=== PATIENT | female | born 1960 | race Caucasian/White ===

== ENCOUNTER 2022-04-25 14:54 | Inpatient (IN) | payer BC, OTHER ==
[2022-04-25] MEDS ORDERED: DEXAMETHASONE SOD PHOSPHATE 10 MG/1 ML VIAL ONE (15:13)
[2022-04-25] MEDS ORDERED: DEXAMETHASONE SOD PHOSPHATE 10 MG/1 ML VIAL IVPUSH ONE (15:23)
[2022-04-25] MEDS ORDERED: MIDAZOLAM HCL 2 MG/2 ML SINGLE DOSE VIAL IVPUSH ONE (15:39)
[2022-04-25 15:40] LABS: HEMATOCRIT 33.1 % (32.4-45.2); HEMOGLOBIN 10.5 GM/dL (10.7-15.3); MCH 28.5 pg (25.7-33.7); MCHC 31.6 g/dl (32.0-36.0); MEAN CELL VOLUME 90.1 fl (80-96); MEAN PLT VOLUME 8.1 fl (7.5-11.1); PLATELET COUNT 535 10^3/uL (134-434); RBC 3.68 M/mm3 (3.60-5.2); RDW 17.6 % (11.6-15.6); WHITE BLOOD COUNT 24.2 K/mm3 (4.0-10.0)
[2022-04-25 15:48] LABS: INR 1.11 (0.83-1.09); PROTHROMBIN TIME (PATIENT) 12.9 SEC (9.7-13.0)
[2022-04-25 15:50] LABS: ACTIVATED PTT 42.2 SECONDS (25.2-36.5)
[2022-04-25] MEDS ORDERED: MIDAZOLAM HCL 2 MG/2 ML SINGLE DOSE VIAL ONE (15:50)
[2022-04-25 16:00] LABS: CALCIUM 9.8 mg/dL (8.5-10.1)
[2022-04-25 16:01] LABS: ALBUMIN 3.4 g/dl (3.4-5.0); BLOOD UREA NITROGEN 22.9 mg/dL (7-18)
[2022-04-25 16:04] LABS: CREATININE 0.3 mg/dL (0.55-1.3)
[2022-04-25 16:05] LABS: BILIRUBIN,TOTAL 0.4 mg/dL (0.2-1); TOT PROT 8.1 g/dl (6.4-8.2)
[2022-04-25] MEDS ORDERED: VANCOMYCIN 1 GM in D5W (PRE-DOCKED) 1,000 MG/250 ML IVPB ONE (16:05)
[2022-04-25] MEDS ORDERED: PIPERACILLIN/TAZOB 4.5 GM 4.5 GM in DEXTROSE 5%-WATER 100 ML IVPB ONE (16:05)
[2022-04-25] MEDS ORDERED: PIPERACILLIN/TAZOB 4.5 GM 4.5 GM/100 ML BAG IVPB ONE (16:12)
[2022-04-25 16:17] LABS: ANISOCYTOSIS 2+; MACROCYTOSIS 1+
[2022-04-25 16:45] LABS: ARTERIAL BLOOD GAS BASE EXCESS -1.5 mmol/L (-2-2); ARTERIAL BLOOD GAS PO2 90.5 mmHg (80-100)
[2022-04-25] MEDS ORDERED: SODIUM CHLORIDE 1,000 ML IV SCH (16:45)
[2022-04-25 16:48] LABS: ARTERIAL BLOOD GAS pH 7.107 (7.350-7.450)
[2022-04-25 16:49] LABS: ALLENS TEST POSITIVE
[2022-04-25 16:50] LABS: VENT MODE A/C; VENT RATE 12
[2022-04-25 17:36] LABS: EPI CELLS 4 /uL (0-25.1); HYALINE CASTS 2 /uL (0-3.1); URINE APPEARANCE CLEAR; URINE BACTERIA 2 /uL (0-1359); URINE BILIRUBIN NEGATIVE (NEGATIVE); URINE COLOR YELLOW; URINE GLUCOSE (UA) NEGATIVE (NEGATIVE); URINE KETONE NEGATIVE (NEGATIVE); URINE LEUK ESTERASE NEGATIVE (NEGATIVE); URINE NITRITE NEGATIVE (NEGATIVE); URINE PROTEIN 1+ (NEGATIVE); URINE RBC 6 /uL (0-23.9); URINE UROBILINOGEN 0.2 mg/dL (0.2-1.0); URINE WBC 5 /uL (0-25.8)
[2022-04-25] MEDS ORDERED: oxyCODONE HCL 5 MG TABLET GT PRN (18:25)
[2022-04-25] MEDS ORDERED: ALBUTEROL SO4 0.083% IH SOL 2.5 MG/3 ML VIAL.NEB. NEB PRN (18:25)
[2022-04-25] MEDS: VANCOMYCIN 1 GM/200 ML PREMIX BAG (RESTRICTED TO ID ONLY) IVPB ONE ×2 (19:39→20:08)
[2022-04-25] MEDS ORDERED: ONDANSETRON 4 MG/2 ML VIAL ONE (19:46)
[2022-04-25] MEDS ORDERED: methylPREDNISolone NA SUCC 125 MG/2 ML VIAL ONE (19:59)
[2022-04-25] MEDS ORDERED: methylPREDNISolone NA SUCC 125 MG/2 ML VIAL IM ONE (20:05)
[2022-04-25] MEDS ORDERED: ONDANSETRON 4 MG/2 ML VIAL IVPUSH ONE (20:06)
[2022-04-25] MEDS: CHLORHEXIDINE GLUCONATE 4% CLEANSER FOR DECOLONIZATION TP SCH (21:23)
[2022-04-25] MEDS: GABAPENTIN 300 MG CAPSULE GT SCH (21:23)
[2022-04-25] MEDS: ALPRAZolam 1 MG TABLET GT SCH (21:23)
[2022-04-25] MEDS: MELATONIN 5 MG TABLETS NR SCH (21:23)
[2022-04-25] MEDS: MUPIROCIN 2% TOPICAL OINTMENT FOR DECOLONIZATION NS SCH (21:23)
[2022-04-25 21:49] LABS: ARTERIAL BLD GAS O2 SATURATION 98.9 % (95-98); ARTERIAL BLOOD GAS BASE EXCESS 3.1 mmol/L (-2-2); ARTERIAL BLOOD GAS PO2 155.8 mmHg (80-100); ARTERIAL BLOOD GAS pH 7.361 (7.350-7.450)
[2022-04-25 21:52] LABS: ALLENS TEST POSITIVE
[2022-04-25 21:53] LABS: VENT MODE A/C; VENT RATE 16
[2022-04-25] MEDS ORDERED: MELATONIN GT SCH (22:00)
[2022-04-26] MEDS ORDERED: ACETAMINOPHEN INJECTION 100 ML IVPB ONE (04:19)
[2022-04-26] MEDS ORDERED: ACETAMINOPHEN 325 MG TABLET (FP) PO ONE (04:26)
[2022-04-26] MEDS ORDERED: ACETAMINOPHEN 1000 MG/100 ML BAG IVPB ONE (04:33)
[2022-04-26] MEDS: ONDANSETRON 4 MG/2 ML VIAL IVPUSH PRN (04:37)
[2022-04-26] MEDS ORDERED: ONDANSETRON HCL 4 MG/5 ML BULK BOTTLE GT PRN (07:37)
[2022-04-26 08:04] LABS: HEMATOCRIT 33.3 % (32.4-45.2); MCH 29.3 pg (25.7-33.7); MCHC 33.2 g/dl (32.0-36.0); MEAN CELL VOLUME 88.2 fl (80-96); MEAN PLT VOLUME 8.1 fl (7.5-11.1); PLATELET COUNT 338 10^3/uL (134-434); RBC 3.77 M/mm3 (3.60-5.2); RDW 17.1 % (11.6-15.6); WHITE BLOOD COUNT 9.1 K/mm3 (4.0-10.0)
[2022-04-26 08:23] LABS: ALBUMIN 3.2 g/dl (3.4-5.0); BLOOD UREA NITROGEN 28.3 mg/dL (7-18); CALCIUM 9.3 mg/dL (8.5-10.1)
[2022-04-26 08:27] LABS: BILIRUBIN,TOTAL 0.4 mg/dL (0.2-1); CREATININE 0.2 mg/dL (0.55-1.3); TOT PROT 7.3 g/dl (6.4-8.2)
[2022-04-26] MEDS: CHOLECALCIFEROL (VIT D SOLUTION) 400 UNIT/1 ML DROPS GT SCH (09:55)
[2022-04-26] MEDS: POLYETHYLENE GLYCOL (HEALTHYLAX) 3350 17 GM PACKET GT SCH (09:55)
[2022-04-26] MEDS: MUPIROCIN 2% TOPICAL OINTMENT FOR DECOLONIZATION NS SCH ×2 (09:56→21:18)
[2022-04-26] MEDS: SCOPOLAMINE HYDROBROMIDE 1 PATCH PATCH.TD72 TD SCH (09:56)
[2022-04-26] MEDS: GLYCOPYRROLATE 1 MG TABLET GT SCH ×2 (09:57→21:17)
[2022-04-26] MEDS: ZINC SULFATE 220 MG CAPSULE (FP) GT SCH (09:57)
[2022-04-26] MEDS: FUROSEMIDE 40 MG/5 ML UNIT-DOSE CUP GT SCH (09:57)
[2022-04-26] MEDS: GABAPENTIN 300 MG CAPSULE GT SCH ×2 (09:57→21:17)
[2022-04-26] MEDS: SERTRALINE HCL 50 MG TABLET (FP) GT SCH (09:59)
[2022-04-26] MEDS: ALPRAZolam 1 MG TABLET GT SCH ×2 (09:59→21:21)
[2022-04-26] MEDS ORDERED: PATIENT'S OWN MEDICATION (NON-FORMULARY) (Zinc Gluconate [Zinc] 50 MG Tablet) GT SCH (10:00)
[2022-04-26] MEDS ORDERED: ENOXAPARIN NA (PORCINE) 40 MG/0.4 ML DISP.SYRIN SQ SCH (10:00)
[2022-04-26 10:05] LABS: ANISOCYTOSIS 1+; MACROCYTOSIS 0
[2022-04-26] MEDS ORDERED: PATIENT'S OWN MEDICATION (NON-FORMULARY) (Dextroamphetamine/Amphetamine [Adderall 10 Mg Ta GT SCH (10:15)
[2022-04-26] MEDS ORDERED: GLYCOPYRROLATE 0.2 MG/1 ML VIAL IM ONE (10:30)
[2022-04-26] MEDS: AMINO ACIDS/PROTEIN HYDROLYS 30 ML LIQUID.PKT GT SCH ×2 (10:56→17:40)
[2022-04-26] MEDS: ENOXAPARIN NA (PORCINE) 40 MG/0.4 ML DISP.SYRIN SQ SCH (12:01)
[2022-04-26] MEDS: PIPERACILLIN/TAZOB 4.5 GM 4.5 GM in DEXTROSE 5%-WATER 100 ML IVPB SCH (17:41)
[2022-04-26] MEDS: MELATONIN 5 MG TABLETS NR SCH (21:17)
[2022-04-26] MEDS: CHLORHEXIDINE GLUCONATE 4% CLEANSER FOR DECOLONIZATION TP SCH (21:18)
[2022-04-26] MEDS: SENNOSIDES 8.8 MG/5 ML SYRUP GT SCH (21:19)
[2022-04-26] MEDS ORDERED: ALPRAZolam 1 MG TABLET NGT PRN (21:23)
[2022-04-26] MEDS: ALPRAZolam 1 MG TABLET NGT SCH (21:47)
[2022-04-27] MEDS: PIPERACILLIN/TAZOB 4.5 GM 4.5 GM in DEXTROSE 5%-WATER 100 ML IVPB SCH ×3 (02:18→17:03)
[2022-04-27] MEDS: LEVOTHYROXINE NA 50 MCG TABLET (FP) GT SCH (06:05)
[2022-04-27 08:19] LABS: CALCIUM 9.5 mg/dL (8.5-10.1)
[2022-04-27 08:20] LABS: ALBUMIN 3.1 g/dl (3.4-5.0); BLOOD UREA NITROGEN 32.2 mg/dL (7-18)
[2022-04-27 08:24] LABS: BILIRUBIN,TOTAL 0.6 mg/dL (0.2-1); CREATININE 0.2 mg/dL (0.55-1.3); PHOSPHOROUS 3.2 mg/dL (2.5-4.9); TOT PROT 6.8 g/dl (6.4-8.2)
[2022-04-27] MEDS ORDERED: LEVOTHYROXINE NA 50 MCG TABLET (FP) GT SCH (08:30)
[2022-04-27] MEDS: AMINO ACIDS/PROTEIN HYDROLYS 30 ML LIQUID.PKT GT SCH ×2 (09:22→16:55)
[2022-04-27] MEDS: POLYETHYLENE GLYCOL (HEALTHYLAX) 3350 17 GM PACKET GT SCH (09:24)
[2022-04-27] MEDS: ENOXAPARIN NA (PORCINE) 40 MG/0.4 ML DISP.SYRIN SQ SCH (09:24)
[2022-04-27] MEDS: GABAPENTIN 300 MG CAPSULE GT SCH ×2 (09:25→21:34)
[2022-04-27] MEDS: ZINC SULFATE 220 MG CAPSULE (FP) GT SCH (09:25)
[2022-04-27] MEDS: SERTRALINE HCL 50 MG TABLET (FP) GT SCH (09:25)
[2022-04-27] MEDS: FUROSEMIDE 40 MG/5 ML UNIT-DOSE CUP GT SCH (09:26)
[2022-04-27] MEDS: MUPIROCIN 2% TOPICAL OINTMENT FOR DECOLONIZATION NS SCH ×2 (09:26→21:16)
[2022-04-27] MEDS: GLYCOPYRROLATE 1 MG TABLET GT SCH ×2 (09:26→21:39)
[2022-04-27] MEDS: CHOLECALCIFEROL (VIT D SOLUTION) 400 UNIT/1 ML DROPS GT SCH (09:26)
[2022-04-27] MEDS: ALPRAZolam 1 MG TABLET NGT SCH ×2 (09:26→21:34)
[2022-04-27 12:24] LABS: BASO % 0.4 % (0-2.0); EOS % 0.5 % (0-4.5); HEMATOCRIT 25.2 % (32.4-45.2); HEMOGLOBIN 8.6 GM/dL (10.7-15.3); LYMPH % 24.5 % (8-40); MCH 29.6 pg (25.7-33.7); MEAN CELL VOLUME 87.3 fl (80-96); MEAN PLT VOLUME 7.7 fl (7.5-11.1); MONO % 7.7 % (3.8-10.2); NEUT % 66.9 % (42.8-82.8); PLATELET COUNT 318 10^3/uL (134-434); RBC 2.89 M/mm3 (3.60-5.2); RDW 17.3 % (11.6-15.6)
[2022-04-27 15:43] VITALS: BMI 27.4
[2022-04-27] MEDS: ACETAMINOPHEN 650 MG/20.3 ML ORAL SOLUTION (CUPS) GT PRN (18:08)
[2022-04-27] MEDS: CHLORHEXIDINE GLUCONATE 4% CLEANSER FOR DECOLONIZATION TP SCH (21:16)
[2022-04-27] MEDS: MELATONIN 5 MG TABLETS NR SCH (21:34)
[2022-04-27] MEDS: ASCORBIC ACID 250 MG TABLET (FP) PO SCH (21:34)
[2022-04-27] MEDS: SENNOSIDES 8.8 MG/5 ML SYRUP GT SCH (21:39)
[2022-04-28] MEDS: PIPERACILLIN/TAZOB 4.5 GM 4.5 GM in DEXTROSE 5%-WATER 100 ML IVPB SCH ×3 (02:00→17:22)
[2022-04-28] MEDS: LEVOTHYROXINE NA 50 MCG TABLET (FP) GT SCH (06:17)
[2022-04-28] MEDS: POLYETHYLENE GLYCOL (HEALTHYLAX) 3350 17 GM PACKET GT SCH (09:16)
[2022-04-28] MEDS: AMINO ACIDS/PROTEIN HYDROLYS 30 ML LIQUID.PKT GT SCH ×2 (09:16→17:21)
[2022-04-28] MEDS: CHOLECALCIFEROL (VIT D SOLUTION) 400 UNIT/1 ML DROPS GT SCH (09:16)
[2022-04-28] MEDS: GLYCOPYRROLATE 1 MG TABLET GT SCH ×2 (09:16→21:02)
[2022-04-28] MEDS: FUROSEMIDE 40 MG/5 ML UNIT-DOSE CUP GT SCH (09:16)
[2022-04-28] MEDS: ENOXAPARIN NA (PORCINE) 40 MG/0.4 ML DISP.SYRIN SQ SCH (09:16)
[2022-04-28] MEDS: GABAPENTIN 300 MG CAPSULE GT SCH ×2 (09:17→21:01)
[2022-04-28] MEDS: ALPRAZolam 1 MG TABLET NGT SCH ×2 (09:17→21:01)
[2022-04-28] MEDS: ASCORBIC ACID 250 MG TABLET (FP) PO SCH ×2 (09:17→21:01)
[2022-04-28] MEDS: ZINC SULFATE 220 MG CAPSULE (FP) GT SCH (09:17)
[2022-04-28] MEDS: SERTRALINE HCL 50 MG TABLET (FP) GT SCH (09:17)
[2022-04-28] MEDS: MUPIROCIN 2% TOPICAL OINTMENT FOR DECOLONIZATION NS SCH ×2 (09:18→21:00)
[2022-04-28] MEDS: ACETAMINOPHEN 650 MG/20.3 ML ORAL SOLUTION (CUPS) GT PRN ×2 (15:42→21:01)
[2022-04-28] MEDS: CHLORHEXIDINE GLUCONATE 4% CLEANSER FOR DECOLONIZATION TP SCH (21:00)
[2022-04-28] MEDS: MELATONIN 5 MG TABLETS NR SCH (21:01)
[2022-04-28] MEDS: SENNOSIDES 8.8 MG/5 ML SYRUP GT SCH (21:03)
[2022-04-29] MEDS: PIPERACILLIN/TAZOB 4.5 GM 4.5 GM in DEXTROSE 5%-WATER 100 ML IVPB SCH ×3 (01:02→17:34)
[2022-04-29] MEDS: ACETAMINOPHEN 650 MG/20.3 ML ORAL SOLUTION (CUPS) GT PRN ×3 (06:48→21:21)
[2022-04-29] MEDS: LEVOTHYROXINE NA 50 MCG TABLET (FP) GT SCH (06:48)
[2022-04-29] MEDS: AMINO ACIDS/PROTEIN HYDROLYS 30 ML LIQUID.PKT GT SCH ×2 (09:09→17:35)
[2022-04-29] MEDS: ENOXAPARIN NA (PORCINE) 40 MG/0.4 ML DISP.SYRIN SQ SCH (09:09)
[2022-04-29] MEDS: ZINC SULFATE 220 MG CAPSULE (FP) GT SCH (09:11)
[2022-04-29] MEDS: POLYETHYLENE GLYCOL (HEALTHYLAX) 3350 17 GM PACKET GT SCH (09:11)
[2022-04-29] MEDS: SERTRALINE HCL 50 MG TABLET (FP) GT SCH (09:11)
[2022-04-29] MEDS: SCOPOLAMINE HYDROBROMIDE 1 PATCH PATCH.TD72 TD SCH (09:11)
[2022-04-29] MEDS: GLYCOPYRROLATE 1 MG TABLET GT SCH ×2 (09:12→21:00)
[2022-04-29] MEDS: ASCORBIC ACID 250 MG TABLET (FP) PO SCH ×2 (09:12→21:00)
[2022-04-29] MEDS: GABAPENTIN 300 MG CAPSULE GT SCH ×2 (09:12→21:00)
[2022-04-29] MEDS: ALPRAZolam 1 MG TABLET NGT SCH ×2 (09:12→21:00)
[2022-04-29] MEDS: MUPIROCIN 2% TOPICAL OINTMENT FOR DECOLONIZATION NS SCH ×2 (09:13→20:59)
[2022-04-29] MEDS: FUROSEMIDE 40 MG/5 ML UNIT-DOSE CUP GT SCH (09:14)
[2022-04-29] MEDS: CHOLECALCIFEROL (VIT D SOLUTION) 400 UNIT/1 ML DROPS GT SCH (09:14)
[2022-04-29] MEDS: CHLORHEXIDINE GLUCONATE 4% CLEANSER FOR DECOLONIZATION TP SCH (20:59)
[2022-04-29] MEDS: MELATONIN 5 MG TABLETS NR SCH (20:59)
[2022-04-29] MEDS: SENNOSIDES 8.8 MG/5 ML SYRUP GT SCH (21:00)
[2022-04-29] MEDS: ONDANSETRON 4 MG/2 ML VIAL IVPUSH PRN (21:01)
[2022-04-30] MEDS: PIPERACILLIN/TAZOB 4.5 GM 4.5 GM in DEXTROSE 5%-WATER 100 ML IVPB SCH ×3 (01:11→18:22)
[2022-04-30] MEDS: LEVOTHYROXINE NA 50 MCG TABLET (FP) GT SCH (07:12)
[2022-04-30] MEDS: ACETAMINOPHEN 650 MG/20.3 ML ORAL SOLUTION (CUPS) GT PRN ×3 (07:12→21:17)
[2022-04-30 07:14] LABS: BASO % 0.2 % (0-2.0); HEMATOCRIT 26.9 % (32.4-45.2); HEMOGLOBIN 9.1 GM/dL (10.7-15.3); LYMPH % 11.9 % (8-40); MCH 29.7 pg (25.7-33.7); MCHC 33.8 g/dl (32.0-36.0); MEAN CELL VOLUME 87.7 fl (80-96); MEAN PLT VOLUME 7.7 fl (7.5-11.1); MONO % 4.9 % (3.8-10.2); PLATELET COUNT 295 10^3/uL (134-434); RBC 3.07 M/mm3 (3.60-5.2); RDW 17.3 % (11.6-15.6); WHITE BLOOD COUNT 9.1 K/mm3 (4.0-10.0)
[2022-04-30 07:29] LABS: CALCIUM 9.3 mg/dL (8.5-10.1)
[2022-04-30 07:30] LABS: ALBUMIN 2.9 g/dl (3.4-5.0); BLOOD UREA NITROGEN 19.4 mg/dL (7-18)
[2022-04-30 07:33] LABS: CREATININE 0.3 mg/dL (0.55-1.3)
[2022-04-30 07:35] LABS: BILIRUBIN,TOTAL 0.6 mg/dL (0.2-1); TOT PROT 6.7 g/dl (6.4-8.2)
[2022-04-30] MEDS: POLYETHYLENE GLYCOL (HEALTHYLAX) 3350 17 GM PACKET GT SCH ×2 (10:18→21:11)
[2022-04-30] MEDS: AMINO ACIDS/PROTEIN HYDROLYS 30 ML LIQUID.PKT GT SCH ×2 (10:18→18:15)
[2022-04-30] MEDS: SERTRALINE HCL 50 MG TABLET (FP) GT SCH (10:19)
[2022-04-30] MEDS: GABAPENTIN 300 MG CAPSULE GT SCH ×2 (10:19→21:12)
[2022-04-30] MEDS: CHOLECALCIFEROL (VIT D SOLUTION) 400 UNIT/1 ML DROPS GT SCH (10:20)
[2022-04-30] MEDS: ALPRAZolam 1 MG TABLET NGT SCH ×2 (10:21→21:13)
[2022-04-30] MEDS: ZINC SULFATE 220 MG CAPSULE (FP) GT SCH (10:21)
[2022-04-30] MEDS: ASCORBIC ACID 250 MG TABLET (FP) PO SCH ×2 (10:21→21:12)
[2022-04-30] MEDS: FUROSEMIDE 40 MG/5 ML UNIT-DOSE CUP GT SCH (10:21)
[2022-04-30] MEDS: MUPIROCIN 2% TOPICAL OINTMENT FOR DECOLONIZATION NS SCH (10:22)
[2022-04-30] MEDS: ENOXAPARIN NA (PORCINE) 40 MG/0.4 ML DISP.SYRIN SQ SCH (11:17)
[2022-04-30] MEDS: GLYCOPYRROLATE 1 MG TABLET GT SCH ×2 (11:20→21:17)
[2022-04-30 14:28] LABS: EPI CELLS 13 /uL (0-25.1); HYALINE CASTS 0 /uL (0-3.1); PH,URINE 5.5 (5.0-8.0); URINE APPEARANCE CLEAR; URINE BACTERIA 1 /uL (0-1359); URINE BILIRUBIN NEGATIVE (NEGATIVE); URINE COLOR YELLOW; URINE GLUCOSE (UA) NEGATIVE (NEGATIVE); URINE KETONE NEGATIVE (NEGATIVE); URINE LEUK ESTERASE TRACE (NEGATIVE); URINE NITRITE NEGATIVE (NEGATIVE); URINE PROTEIN NEGATIVE (NEGATIVE); URINE RBC 17 /uL (0-23.9); URINE UROBILINOGEN 0.2 mg/dL (0.2-1.0); URINE WBC 13 /uL (0-25.8)
[2022-04-30 14:55] LABS: URINE CRYSTALS FEW CALCIUM OXALATE /hpf
[2022-04-30] MEDS: MELATONIN 5 MG TABLETS NR SCH (21:11)
[2022-04-30] MEDS: CHLORHEXIDINE GLUCONATE 4% CLEANSER FOR DECOLONIZATION TP SCH (21:11)
[2022-04-30] MEDS: SENNOSIDES 8.8 MG/5 ML SYRUP GT SCH (21:13)
[2022-04-30] MEDS: ONDANSETRON 4 MG/2 ML VIAL IVPUSH PRN (22:20)
[2022-05-01] MEDS: PIPERACILLIN/TAZOB 4.5 GM 4.5 GM in DEXTROSE 5%-WATER 100 ML IVPB SCH ×3 (02:24→17:43)
[2022-05-01] MEDS: ACETAMINOPHEN 650 MG/20.3 ML ORAL SOLUTION (CUPS) GT PRN ×3 (05:48→17:56)
[2022-05-01] MEDS: LEVOTHYROXINE NA 50 MCG TABLET (FP) GT SCH (06:21)
[2022-05-01] MEDS: AMINO ACIDS/PROTEIN HYDROLYS 30 ML LIQUID.PKT GT SCH ×2 (07:42→17:44)
[2022-05-01 07:51] LABS: HEMATOCRIT 26.3 % (32.4-45.2); HEMOGLOBIN 8.7 GM/dL (10.7-15.3); MCH 29.1 pg (25.7-33.7); MEAN CELL VOLUME 88.2 fl (80-96); PLATELET COUNT 320 10^3/uL (134-434); RBC 2.98 M/mm3 (3.60-5.2); RDW 17.4 % (11.6-15.6); WHITE BLOOD COUNT 8.2 K/mm3 (4.0-10.0)
[2022-05-01 08:20] LABS: CALCIUM 9.1 mg/dL (8.5-10.1)
[2022-05-01 08:24] LABS: CREATININE 0.3 mg/dL (0.55-1.3)
[2022-05-01 08:27] LABS: BLOOD UREA NITROGEN 21.2 mg/dL (7-18)
[2022-05-01] MEDS: POLYETHYLENE GLYCOL (HEALTHYLAX) 3350 17 GM PACKET GT SCH ×2 (11:26→21:29)
[2022-05-01] MEDS: GABAPENTIN 300 MG CAPSULE GT SCH ×2 (11:26→21:29)
[2022-05-01] MEDS: ZINC SULFATE 220 MG CAPSULE (FP) GT SCH (11:26)
[2022-05-01] MEDS: SERTRALINE HCL 50 MG TABLET (FP) GT SCH (11:26)
[2022-05-01] MEDS: ASCORBIC ACID 250 MG TABLET (FP) PO SCH ×2 (11:26→21:29)
[2022-05-01] MEDS: ENOXAPARIN NA (PORCINE) 40 MG/0.4 ML DISP.SYRIN SQ SCH (11:27)
[2022-05-01] MEDS: ALPRAZolam 1 MG TABLET NGT SCH ×2 (11:27→21:29)
[2022-05-01] MEDS: CHOLECALCIFEROL (VIT D SOLUTION) 400 UNIT/1 ML DROPS GT SCH (14:57)
[2022-05-01] MEDS: FUROSEMIDE 40 MG/5 ML UNIT-DOSE CUP GT SCH (14:58)
[2022-05-01] MEDS: GLYCOPYRROLATE 1 MG TABLET GT SCH ×2 (14:59→22:06)
[2022-05-01] MEDS: POTASSIUM CHLORIDE ORAL LIQUID 20 MEQ/15 ML PO SCH ×2 (17:43→21:28)
[2022-05-01] MEDS ORDERED: FAMOTIDINE 40 MG/5 ML ORAL SUSPENSION GT ONE (20:45)
[2022-05-01] MEDS: ONDANSETRON 4 MG/2 ML VIAL IVPUSH PRN (21:17)
[2022-05-01] MEDS: MELATONIN 5 MG TABLETS NR SCH (21:29)
[2022-05-01] MEDS: SENNOSIDES 8.8 MG/5 ML SYRUP GT SCH (22:06)
[2022-05-02] MEDS: PIPERACILLIN/TAZOB 4.5 GM 4.5 GM in DEXTROSE 5%-WATER 100 ML IVPB SCH ×3 (01:24→17:22)
[2022-05-02] MEDS: LEVOTHYROXINE NA 50 MCG TABLET (FP) GT SCH (06:05)
[2022-05-02] MEDS: ACETAMINOPHEN 650 MG/20.3 ML ORAL SOLUTION (CUPS) GT PRN ×2 (06:53→18:00)
[2022-05-02] MEDS: AMINO ACIDS/PROTEIN HYDROLYS 30 ML LIQUID.PKT GT SCH ×2 (10:00→17:43)
[2022-05-02] MEDS: SERTRALINE HCL 50 MG TABLET (FP) GT SCH (10:04)
[2022-05-02] MEDS: ZINC SULFATE 220 MG CAPSULE (FP) GT SCH (10:04)
[2022-05-02] MEDS: CHOLECALCIFEROL (VIT D SOLUTION) 400 UNIT/1 ML DROPS GT SCH (10:05)
[2022-05-02] MEDS: FUROSEMIDE 40 MG/5 ML UNIT-DOSE CUP GT SCH (10:05)
[2022-05-02] MEDS: ENOXAPARIN NA (PORCINE) 40 MG/0.4 ML DISP.SYRIN SQ SCH (10:05)
[2022-05-02] MEDS: ASCORBIC ACID 250 MG TABLET (FP) PO SCH ×2 (10:05→21:15)
[2022-05-02] MEDS: GABAPENTIN 300 MG CAPSULE GT SCH ×2 (10:05→21:15)
[2022-05-02] MEDS: SCOPOLAMINE HYDROBROMIDE 1 PATCH PATCH.TD72 TD SCH (10:06)
[2022-05-02] MEDS: ALPRAZolam 1 MG TABLET NGT SCH ×2 (10:06→21:15)
[2022-05-02] MEDS: POLYETHYLENE GLYCOL (HEALTHYLAX) 3350 17 GM PACKET GT SCH ×2 (10:06→21:15)
[2022-05-02] MEDS: GLYCOPYRROLATE 1 MG TABLET GT SCH ×2 (10:07→22:31)
[2022-05-02 10:47] LABS: ALBUMIN 2.7 g/dl (3.4-5.0); BLOOD UREA NITROGEN 20.8 mg/dL (7-18); CALCIUM 8.6 mg/dL (8.5-10.1); MAGNESIUM 2.1 mg/dL (1.8-2.4)
[2022-05-02 10:50] LABS: CREATININE 0.2 mg/dL (0.55-1.3)
[2022-05-02 10:52] LABS: BILIRUBIN,TOTAL 0.3 mg/dL (0.2-1); TOT PROT 6.6 g/dl (6.4-8.2)
[2022-05-02] MEDS ORDERED: FAMOTIDINE 40 MG/5 ML ORAL SUSPENSION PEG ONE (19:53)
[2022-05-02] MEDS: MELATONIN 5 MG TABLETS NR SCH (21:15)
[2022-05-02] MEDS: SENNOSIDES 8.8 MG/5 ML SYRUP GT SCH (22:22)
[2022-05-03] MEDS: PIPERACILLIN/TAZOB 4.5 GM 4.5 GM in DEXTROSE 5%-WATER 100 ML IVPB SCH ×2 (01:39→09:10)
[2022-05-03] MEDS: ACETAMINOPHEN 650 MG/20.3 ML ORAL SOLUTION (CUPS) GT PRN ×3 (02:11→18:41)
[2022-05-03] MEDS: LEVOTHYROXINE NA 50 MCG TABLET (FP) GT SCH (06:01)
[2022-05-03] MEDS: GLYCOPYRROLATE 1 MG TABLET GT SCH ×2 (09:10→21:25)
[2022-05-03] MEDS: ALPRAZolam 1 MG TABLET NGT SCH ×2 (09:10→21:25)
[2022-05-03] MEDS: AMINO ACIDS/PROTEIN HYDROLYS 30 ML LIQUID.PKT GT SCH ×2 (09:10→17:19)
[2022-05-03] MEDS: ZINC SULFATE 220 MG CAPSULE (FP) GT SCH (09:10)
[2022-05-03] MEDS: SERTRALINE HCL 50 MG TABLET (FP) GT SCH (09:10)
[2022-05-03] MEDS: GABAPENTIN 300 MG CAPSULE GT SCH ×2 (09:10→21:25)
[2022-05-03] MEDS: ASCORBIC ACID 250 MG TABLET (FP) PO SCH ×2 (09:10→21:25)
[2022-05-03] MEDS: FUROSEMIDE 40 MG/5 ML UNIT-DOSE CUP GT SCH (09:11)
[2022-05-03] MEDS: ENOXAPARIN NA (PORCINE) 40 MG/0.4 ML DISP.SYRIN SQ SCH (09:11)
[2022-05-03] MEDS: POLYETHYLENE GLYCOL (HEALTHYLAX) 3350 17 GM PACKET GT SCH ×2 (09:12→21:26)
[2022-05-03] MEDS: CHOLECALCIFEROL (VIT D SOLUTION) 400 UNIT/1 ML DROPS GT SCH (09:12)
[2022-05-03] MEDS: ONDANSETRON 4 MG/2 ML VIAL IVPUSH PRN (19:43)
[2022-05-03] MEDS: MELATONIN 5 MG TABLETS NR SCH (21:25)
[2022-05-03] MEDS: SENNOSIDES 8.8 MG/5 ML SYRUP GT SCH (21:26)
[2022-05-03] MEDS: CLOTRIMAZOLE 1% CREAM TP SCH (21:27)
[2022-05-03] MEDS: MINERAL OIL/PET HY-PHL TOPICAL OINTMENT 454 GM JAR TP SCH (21:27)
[2022-05-04] MEDS: LEVOTHYROXINE NA 50 MCG TABLET (FP) GT SCH (06:17)
[2022-05-04] MEDS: POLYETHYLENE GLYCOL (HEALTHYLAX) 3350 17 GM PACKET GT SCH ×2 (11:07→21:06)
[2022-05-04] MEDS: AMINO ACIDS/PROTEIN HYDROLYS 30 ML LIQUID.PKT GT SCH ×2 (11:07→17:43)
[2022-05-04] MEDS: GABAPENTIN 300 MG CAPSULE GT SCH ×2 (11:08→21:11)
[2022-05-04] MEDS: ALPRAZolam 1 MG TABLET NGT SCH ×2 (11:08→21:10)
[2022-05-04] MEDS: ASCORBIC ACID 250 MG TABLET (FP) PO SCH ×2 (11:08→21:12)
[2022-05-04] MEDS: ZINC SULFATE 220 MG CAPSULE (FP) GT SCH (11:08)
[2022-05-04] MEDS: SERTRALINE HCL 50 MG TABLET (FP) GT SCH (11:08)
[2022-05-04] MEDS: MINERAL OIL/PET HY-PHL TOPICAL OINTMENT 454 GM JAR TP SCH ×2 (11:09→21:13)
[2022-05-04] MEDS: CLOTRIMAZOLE 1% CREAM TP SCH ×2 (11:10→22:34)
[2022-05-04] MEDS: FUROSEMIDE 40 MG/5 ML UNIT-DOSE CUP GT SCH (11:10)
[2022-05-04] MEDS: GLYCOPYRROLATE 1 MG TABLET GT SCH ×2 (11:11→21:11)
[2022-05-04] MEDS: CHOLECALCIFEROL (VIT D SOLUTION) 400 UNIT/1 ML DROPS GT SCH (11:11)
[2022-05-04] MEDS: ACETAMINOPHEN 650 MG/20.3 ML ORAL SOLUTION (CUPS) GT PRN ×2 (11:15→17:43)
[2022-05-04] MEDS ORDERED: AMOX TR/POTASSIUM CLAVULANATE 600 MG/5 ML PO SCH (17:30)
[2022-05-04] MEDS: PIPERACILLIN/TAZOB 4.5 GM 4.5 GM in DEXTROSE 5%-WATER 100 ML IVPB SCH (17:44)
[2022-05-04] MEDS: SENNOSIDES 8.8 MG/5 ML SYRUP GT SCH (21:08)
[2022-05-04] MEDS: MELATONIN 5 MG TABLETS NR SCH (21:09)
[2022-05-05] MEDS: PIPERACILLIN/TAZOB 4.5 GM 4.5 GM in DEXTROSE 5%-WATER 100 ML IVPB SCH ×3 (01:34→18:31)
[2022-05-05] MEDS: ACETAMINOPHEN 650 MG/20.3 ML ORAL SOLUTION (CUPS) GT PRN ×3 (06:14→18:33)
[2022-05-05] MEDS: LEVOTHYROXINE NA 50 MCG TABLET (FP) GT SCH (06:47)
[2022-05-05] MEDS: GABAPENTIN 300 MG CAPSULE GT SCH ×2 (10:08→21:53)
[2022-05-05] MEDS: ZINC SULFATE 220 MG CAPSULE (FP) GT SCH (10:08)
[2022-05-05] MEDS: SERTRALINE HCL 50 MG TABLET (FP) GT SCH (10:08)
[2022-05-05] MEDS: FUROSEMIDE 40 MG/5 ML UNIT-DOSE CUP GT SCH (10:09)
[2022-05-05] MEDS: ALPRAZolam 1 MG TABLET NGT SCH ×2 (10:09→21:53)
[2022-05-05] MEDS: CHOLECALCIFEROL (VIT D SOLUTION) 400 UNIT/1 ML DROPS GT SCH (10:09)
[2022-05-05] MEDS: AMINO ACIDS/PROTEIN HYDROLYS 30 ML LIQUID.PKT GT SCH ×2 (10:09→18:32)
[2022-05-05] MEDS: GLYCOPYRROLATE 1 MG TABLET GT SCH ×2 (10:10→21:53)
[2022-05-05] MEDS: SCOPOLAMINE HYDROBROMIDE 1 PATCH PATCH.TD72 TD SCH (10:10)
[2022-05-05] MEDS: ASCORBIC ACID 250 MG TABLET (FP) PO SCH ×2 (10:11→21:53)
[2022-05-05] MEDS: MINERAL OIL/PET HY-PHL TOPICAL OINTMENT 454 GM JAR TP SCH ×2 (10:44→21:54)
[2022-05-05] MEDS: CLOTRIMAZOLE 1% CREAM TP SCH ×2 (10:44→21:53)
[2022-05-05] MEDS: ONDANSETRON HCL 4 MG/5 ML BULK BOTTLE GT PRN (10:56)
[2022-05-05] MEDS: POLYETHYLENE GLYCOL (HEALTHYLAX) 3350 17 GM PACKET GT SCH ×2 (10:59→21:55)
[2022-05-05] MEDS: MELATONIN 5 MG TABLETS NR SCH (21:53)
[2022-05-05] MEDS: SENNOSIDES 8.8 MG/5 ML SYRUP GT SCH (21:55)
[2022-05-06] MEDS: PIPERACILLIN/TAZOB 4.5 GM 4.5 GM in DEXTROSE 5%-WATER 100 ML IVPB SCH ×3 (02:40→17:06)
[2022-05-06] MEDS: LEVOTHYROXINE NA 50 MCG TABLET (FP) GT SCH (06:06)
[2022-05-06] MEDS: ACETAMINOPHEN 650 MG/20.3 ML ORAL SOLUTION (CUPS) GT PRN ×2 (08:39→16:20)
[2022-05-06] MEDS: AMINO ACIDS/PROTEIN HYDROLYS 30 ML LIQUID.PKT GT SCH ×2 (08:39→16:48)
[2022-05-06] MEDS: POLYETHYLENE GLYCOL (HEALTHYLAX) 3350 17 GM PACKET GT SCH ×2 (10:56→21:48)
[2022-05-06] MEDS: CHOLECALCIFEROL (VIT D SOLUTION) 400 UNIT/1 ML DROPS GT SCH (10:57)
[2022-05-06] MEDS: ONDANSETRON HCL 4 MG/5 ML BULK BOTTLE GT PRN (10:58)
[2022-05-06] MEDS: SERTRALINE HCL 50 MG TABLET (FP) GT SCH (10:58)
[2022-05-06] MEDS: ALPRAZolam 1 MG TABLET NGT SCH ×2 (10:59→21:49)
[2022-05-06] MEDS: GLYCOPYRROLATE 1 MG TABLET GT SCH ×2 (10:59→21:48)
[2022-05-06] MEDS: ASCORBIC ACID 250 MG TABLET (FP) PO SCH ×2 (11:00→21:49)
[2022-05-06] MEDS: GABAPENTIN 300 MG CAPSULE GT SCH ×2 (11:00→21:48)
[2022-05-06] MEDS: ZINC SULFATE 220 MG CAPSULE (FP) GT SCH (11:00)
[2022-05-06] MEDS: FUROSEMIDE 40 MG/5 ML UNIT-DOSE CUP GT SCH (11:04)
[2022-05-06] MEDS: MINERAL OIL/PET HY-PHL TOPICAL OINTMENT 454 GM JAR TP SCH ×2 (11:09→23:54)
[2022-05-06] MEDS: CLOTRIMAZOLE 1% CREAM TP SCH ×2 (11:10→23:54)
[2022-05-06] MEDS: MELATONIN 5 MG TABLETS NR SCH (21:49)
[2022-05-06] MEDS: SENNOSIDES 8.8 MG/5 ML SYRUP GT SCH (22:05)
[2022-05-07] MEDS: PIPERACILLIN/TAZOB 4.5 GM 4.5 GM in DEXTROSE 5%-WATER 100 ML IVPB SCH ×3 (01:30→18:11)
[2022-05-07] MEDS: LEVOTHYROXINE NA 50 MCG TABLET (FP) GT SCH (06:33)
[2022-05-07] MEDS: ACETAMINOPHEN 650 MG/20.3 ML ORAL SOLUTION (CUPS) GT PRN ×3 (08:58→21:14)
[2022-05-07] MEDS: GABAPENTIN 300 MG CAPSULE GT SCH ×2 (10:17→21:14)
[2022-05-07] MEDS: ZINC SULFATE 220 MG CAPSULE (FP) GT SCH (10:17)
[2022-05-07] MEDS: SERTRALINE HCL 50 MG TABLET (FP) GT SCH (10:17)
[2022-05-07] MEDS: AMINO ACIDS/PROTEIN HYDROLYS 30 ML LIQUID.PKT GT SCH ×2 (10:17→18:11)
[2022-05-07] MEDS: ASCORBIC ACID 250 MG TABLET (FP) PO SCH ×2 (10:18→21:14)
[2022-05-07] MEDS: ALPRAZolam 1 MG TABLET NGT SCH ×2 (10:18→21:14)
[2022-05-07] MEDS: CHOLECALCIFEROL (VIT D SOLUTION) 400 UNIT/1 ML DROPS GT SCH (10:18)
[2022-05-07] MEDS: POLYETHYLENE GLYCOL (HEALTHYLAX) 3350 17 GM PACKET GT SCH ×2 (10:19→21:14)
[2022-05-07] MEDS: FUROSEMIDE 40 MG/5 ML UNIT-DOSE CUP GT SCH (10:19)
[2022-05-07] MEDS: GLYCOPYRROLATE 1 MG TABLET GT SCH ×2 (10:20→22:29)
[2022-05-07] MEDS: CLOTRIMAZOLE 1% CREAM TP SCH ×2 (10:53→22:29)
[2022-05-07] MEDS: MINERAL OIL/PET HY-PHL TOPICAL OINTMENT 454 GM JAR TP SCH ×2 (10:54→22:29)
[2022-05-07] MEDS ORDERED: FAMOTIDINE 20 MG TABLET PO SCH (20:30)
[2022-05-07] MEDS ORDERED: FAMOTIDINE 40 MG/5 ML ORAL SUSPENSION PO SCH (20:49)
[2022-05-07] MEDS: MELATONIN 5 MG TABLETS NR SCH (21:14)
[2022-05-07] MEDS: ONDANSETRON 4 MG/2 ML VIAL IVPUSH PRN (21:29)
[2022-05-07] MEDS: SENNOSIDES 8.8 MG/5 ML SYRUP GT SCH (22:29)
[2022-05-08] MEDS: PIPERACILLIN/TAZOB 4.5 GM 4.5 GM in DEXTROSE 5%-WATER 100 ML IVPB SCH (02:05)
[2022-05-08] MEDS: LEVOTHYROXINE NA 50 MCG TABLET (FP) GT SCH (06:03)
[2022-05-08] MEDS: AMINO ACIDS/PROTEIN HYDROLYS 30 ML LIQUID.PKT GT SCH ×2 (10:38→17:48)
[2022-05-08] MEDS: POLYETHYLENE GLYCOL (HEALTHYLAX) 3350 17 GM PACKET GT SCH ×2 (10:38→22:03)
[2022-05-08] MEDS: ALPRAZolam 1 MG TABLET NGT SCH ×2 (10:39→22:02)
[2022-05-08] MEDS: SERTRALINE HCL 50 MG TABLET (FP) GT SCH (10:39)
[2022-05-08] MEDS: ZINC SULFATE 220 MG CAPSULE (FP) GT SCH (10:39)
[2022-05-08] MEDS: CHOLECALCIFEROL (VIT D SOLUTION) 400 UNIT/1 ML DROPS GT SCH (10:40)
[2022-05-08] MEDS: FAMOTIDINE 40 MG/5 ML ORAL SUSPENSION GT SCH (10:41)
[2022-05-08] MEDS: GLYCOPYRROLATE 1 MG TABLET GT SCH ×2 (10:42→22:06)
[2022-05-08] MEDS: SCOPOLAMINE HYDROBROMIDE 1 PATCH PATCH.TD72 TD SCH (10:42)
[2022-05-08] MEDS: FUROSEMIDE 40 MG/5 ML UNIT-DOSE CUP GT SCH (10:44)
[2022-05-08] MEDS: ASCORBIC ACID 500 MG/5 ML GT SCH ×2 (10:44→22:08)
[2022-05-08] MEDS: ACETAMINOPHEN 650 MG/20.3 ML ORAL SOLUTION (CUPS) GT PRN ×2 (10:48→20:04)
[2022-05-08] MEDS: CLOTRIMAZOLE 1% CREAM TP SCH ×2 (11:52→22:03)
[2022-05-08] MEDS: MINERAL OIL/PET HY-PHL TOPICAL OINTMENT 454 GM JAR TP SCH ×2 (11:52→22:03)
[2022-05-08] MEDS: GABAPENTIN 250 MG/5 ML ORAL SOLUTION, 470 ML BOTTLE GT SCH ×2 (13:11→22:05)
[2022-05-08 14:01] LABS: BASO % 0.4 % (0-2.0); EOS % 2.6 % (0-4.5); HEMATOCRIT 25.7 % (32.4-45.2); HEMOGLOBIN 8.5 GM/dL (10.7-15.3); LYMPH % 14.4 % (8-40); MCH 29.2 pg (25.7-33.7); MCHC 33.1 g/dl (32.0-36.0); MEAN CELL VOLUME 88.1 fl (80-96); MEAN PLT VOLUME 7.7 fl (7.5-11.1); MONO % 5.6 % (3.8-10.2); PLATELET COUNT 316 10^3/uL (134-434); RBC 2.91 M/mm3 (3.60-5.2); WHITE BLOOD COUNT 7.7 K/mm3 (4.0-10.0)
[2022-05-08 14:26] LABS: ALBUMIN 2.6 g/dl (3.4-5.0); CALCIUM 8.7 mg/dL (8.5-10.1)
[2022-05-08 14:27] LABS: BLOOD UREA NITROGEN 17.5 mg/dL (7-18)
[2022-05-08 14:30] LABS: CREATININE 0.2 mg/dL (0.55-1.3)
[2022-05-08 14:31] LABS: BILIRUBIN,TOTAL 0.3 mg/dL (0.2-1); TOT PROT 6.4 g/dl (6.4-8.2)
[2022-05-08] MEDS ORDERED: POTASSIUM CHLORIDE ORAL LIQUID 20 MEQ/15 ML PO ONE (17:11)
[2022-05-08] MEDS: MELATONIN 5 MG TABLETS NR SCH (22:02)
[2022-05-08] MEDS: SENNOSIDES 8.8 MG/5 ML SYRUP GT SCH (22:07)
[2022-05-09] MEDS: LEVOTHYROXINE NA 50 MCG TABLET (FP) GT SCH (07:19)
[2022-05-09] MEDS: ACETAMINOPHEN 650 MG/20.3 ML ORAL SOLUTION (CUPS) GT PRN ×2 (10:13→16:45)
[2022-05-09] MEDS: CHOLECALCIFEROL (VIT D SOLUTION) 400 UNIT/1 ML DROPS GT SCH (10:14)
[2022-05-09] MEDS: FAMOTIDINE 40 MG/5 ML ORAL SUSPENSION GT SCH (10:14)
[2022-05-09] MEDS: POTASSIUM CHLORIDE ORAL LIQUID 20 MEQ/15 ML PO SCH (10:14)
[2022-05-09] MEDS: GABAPENTIN 250 MG/5 ML ORAL SOLUTION, 470 ML BOTTLE GT SCH ×2 (10:14→21:57)
[2022-05-09] MEDS: SERTRALINE HCL 50 MG TABLET (FP) GT SCH (10:15)
[2022-05-09] MEDS: ASCORBIC ACID 500 MG/5 ML GT SCH ×2 (10:15→21:57)
[2022-05-09] MEDS: ALPRAZolam 1 MG TABLET NGT SCH ×2 (10:15→21:58)
[2022-05-09] MEDS: GLYCOPYRROLATE 1 MG TABLET GT SCH ×2 (10:15→21:57)
[2022-05-09] MEDS: FUROSEMIDE 40 MG/5 ML UNIT-DOSE CUP GT SCH (10:15)
[2022-05-09] MEDS: POLYETHYLENE GLYCOL (HEALTHYLAX) 3350 17 GM PACKET GT SCH ×2 (10:15→21:55)
[2022-05-09] MEDS: AMINO ACIDS/PROTEIN HYDROLYS 30 ML LIQUID.PKT GT SCH ×2 (10:15→16:45)
[2022-05-09] MEDS: CLOTRIMAZOLE 1% CREAM TP SCH ×2 (10:16→21:56)
[2022-05-09] MEDS: MINERAL OIL/PET HY-PHL TOPICAL OINTMENT 454 GM JAR TP SCH ×2 (10:16→21:55)
[2022-05-09] MEDS: ZINC SULFATE 220 MG CAPSULE (FP) GT SCH (10:16)
[2022-05-09] MEDS: MELATONIN 5 MG TABLETS NR SCH (21:56)
[2022-05-09] MEDS: SENNOSIDES 8.8 MG/5 ML SYRUP GT SCH (21:57)
[2022-05-10] MEDS: LEVOTHYROXINE NA 50 MCG TABLET (FP) GT SCH (06:49)
[2022-05-10] MEDS: MINERAL OIL/PET HY-PHL TOPICAL OINTMENT 454 GM JAR TP SCH ×2 (10:00→21:55)
[2022-05-10] MEDS: CLOTRIMAZOLE 1% CREAM TP SCH ×2 (10:13→21:55)
[2022-05-10 10:43] LABS: CALCIUM 9.4 mg/dL (8.5-10.1)
[2022-05-10 10:44] LABS: ALBUMIN 2.9 g/dl (3.4-5.0); BLOOD UREA NITROGEN 18.5 mg/dL (7-18); MAGNESIUM 2.1 mg/dL (1.8-2.4)
[2022-05-10] MEDS: AMINO ACIDS/PROTEIN HYDROLYS 30 ML LIQUID.PKT GT SCH ×2 (10:44→17:56)
[2022-05-10] MEDS: ZINC SULFATE 220 MG CAPSULE (FP) GT SCH (10:45)
[2022-05-10] MEDS: FUROSEMIDE 40 MG/5 ML UNIT-DOSE CUP GT SCH (10:45)
[2022-05-10] MEDS: POLYETHYLENE GLYCOL (HEALTHYLAX) 3350 17 GM PACKET GT SCH ×2 (10:45→21:55)
[2022-05-10] MEDS: POTASSIUM CHLORIDE ORAL LIQUID 20 MEQ/15 ML PO SCH (10:46)
[2022-05-10] MEDS: FAMOTIDINE 40 MG/5 ML ORAL SUSPENSION GT SCH (10:46)
[2022-05-10 10:47] LABS: CREATININE 0.2 mg/dL (0.55-1.3)
[2022-05-10] MEDS: GLYCOPYRROLATE 1 MG TABLET GT SCH ×2 (10:47→21:57)
[2022-05-10] MEDS: CHOLECALCIFEROL (VIT D SOLUTION) 400 UNIT/1 ML DROPS GT SCH (10:47)
[2022-05-10] MEDS: ASCORBIC ACID 500 MG/5 ML GT SCH ×2 (10:47→21:57)
[2022-05-10] MEDS: SERTRALINE HCL 50 MG TABLET (FP) GT SCH (10:48)
[2022-05-10] MEDS: ALPRAZolam 1 MG TABLET NGT SCH ×2 (10:48→21:57)
[2022-05-10 10:49] LABS: BILIRUBIN,TOTAL 0.2 mg/dL (0.2-1)
[2022-05-10] MEDS: GABAPENTIN 250 MG/5 ML ORAL SOLUTION, 470 ML BOTTLE GT SCH ×2 (11:53→21:56)
[2022-05-10] MEDS: ACETAMINOPHEN 650 MG/20.3 ML ORAL SOLUTION (CUPS) GT PRN (17:13)
[2022-05-10] MEDS: MELATONIN 5 MG TABLETS NR SCH (21:55)
[2022-05-10] MEDS: SENNOSIDES 8.8 MG/5 ML SYRUP GT SCH (21:57)
[2022-05-11] MEDS: LEVOTHYROXINE NA 50 MCG TABLET (FP) GT SCH (06:00)
[2022-05-11] MEDS: AMINO ACIDS/PROTEIN HYDROLYS 30 ML LIQUID.PKT GT SCH ×2 (10:25→18:30)
[2022-05-11] MEDS: POLYETHYLENE GLYCOL (HEALTHYLAX) 3350 17 GM PACKET GT SCH ×2 (10:25→21:19)
[2022-05-11] MEDS: GABAPENTIN 250 MG/5 ML ORAL SOLUTION, 470 ML BOTTLE GT SCH ×2 (10:25→21:20)
[2022-05-11] MEDS: POTASSIUM CHLORIDE ORAL LIQUID 20 MEQ/15 ML PO SCH (10:26)
[2022-05-11] MEDS: GLYCOPYRROLATE 1 MG TABLET GT SCH ×2 (10:26→21:20)
[2022-05-11] MEDS: ZINC SULFATE 220 MG CAPSULE (FP) GT SCH (10:26)
[2022-05-11] MEDS: ALPRAZolam 1 MG TABLET NGT SCH ×2 (10:26→21:21)
[2022-05-11] MEDS: FUROSEMIDE 40 MG/5 ML UNIT-DOSE CUP GT SCH (10:27)
[2022-05-11] MEDS: ASCORBIC ACID 500 MG/5 ML GT SCH ×2 (10:27→21:21)
[2022-05-11] MEDS: CHOLECALCIFEROL (VIT D SOLUTION) 400 UNIT/1 ML DROPS GT SCH (10:27)
[2022-05-11] MEDS: FAMOTIDINE 40 MG/5 ML ORAL SUSPENSION GT SCH (10:27)
[2022-05-11] MEDS: SERTRALINE HCL 50 MG TABLET (FP) GT SCH (10:27)
[2022-05-11] MEDS: CLOTRIMAZOLE 1% CREAM TP SCH ×2 (10:29→21:20)
[2022-05-11] MEDS: SCOPOLAMINE HYDROBROMIDE 1 PATCH PATCH.TD72 TD SCH (10:30)
[2022-05-11] MEDS: MINERAL OIL/PET HY-PHL TOPICAL OINTMENT 454 GM JAR TP SCH ×2 (11:47→21:19)
[2022-05-11] MEDS: ACETAMINOPHEN 650 MG/20.3 ML ORAL SOLUTION (CUPS) GT PRN ×2 (15:29→21:29)
[2022-05-11] MEDS: MELATONIN 5 MG TABLETS NR SCH (21:20)
[2022-05-11] MEDS: SENNOSIDES 8.8 MG/5 ML SYRUP GT SCH (21:21)
[2022-05-12] MEDS: LEVOTHYROXINE NA 50 MCG TABLET (FP) GT SCH (06:32)
[2022-05-12 07:12] LABS: HEMATOCRIT 28.6 % (32.4-45.2); HEMOGLOBIN 9.2 GM/dL (10.7-15.3); MCH 27.9 pg (25.7-33.7); MEAN CELL VOLUME 87.3 fl (80-96); MEAN PLT VOLUME 7.7 fl (7.5-11.1); PLATELET COUNT 304 10^3/uL (134-434); RBC 3.28 M/mm3 (3.60-5.2); RDW 17.3 % (11.6-15.6); WHITE BLOOD COUNT 7.3 K/mm3 (4.0-10.0)
[2022-05-12 07:32] LABS: ALBUMIN 2.8 g/dl (3.4-5.0); BLOOD UREA NITROGEN 22.6 mg/dL (7-18); CALCIUM 9.2 mg/dL (8.5-10.1)
[2022-05-12 07:35] LABS: CREATININE 0.2 mg/dL (0.55-1.3)
[2022-05-12 07:36] LABS: TOT PROT 6.5 g/dl (6.4-8.2)
[2022-05-12 07:37] LABS: BILIRUBIN,TOTAL 0.2 mg/dL (0.2-1)
[2022-05-12] MEDS: POTASSIUM CHLORIDE ORAL LIQUID 20 MEQ/15 ML PO SCH (09:22)
[2022-05-12] MEDS: ZINC SULFATE 220 MG CAPSULE (FP) GT SCH (09:23)
[2022-05-12] MEDS: AMINO ACIDS/PROTEIN HYDROLYS 30 ML LIQUID.PKT GT SCH ×2 (09:23→17:50)
[2022-05-12] MEDS: SERTRALINE HCL 50 MG TABLET (FP) GT SCH (09:23)
[2022-05-12] MEDS: MINERAL OIL/PET HY-PHL TOPICAL OINTMENT 454 GM JAR TP SCH ×2 (09:23→21:35)
[2022-05-12] MEDS: POLYETHYLENE GLYCOL (HEALTHYLAX) 3350 17 GM PACKET GT SCH ×2 (09:23→21:05)
[2022-05-12] MEDS: ALPRAZolam 1 MG TABLET NGT SCH ×2 (09:24→21:05)
[2022-05-12] MEDS: CHOLECALCIFEROL (VIT D SOLUTION) 400 UNIT/1 ML DROPS GT SCH (09:24)
[2022-05-12] MEDS: ASCORBIC ACID 500 MG/5 ML GT SCH ×2 (09:24→21:05)
[2022-05-12] MEDS: FAMOTIDINE 40 MG/5 ML ORAL SUSPENSION GT SCH (09:25)
[2022-05-12] MEDS: FUROSEMIDE 40 MG/5 ML UNIT-DOSE CUP GT SCH (09:25)
[2022-05-12] MEDS: CLOTRIMAZOLE 1% CREAM TP SCH ×2 (09:25→21:30)
[2022-05-12] MEDS: GLYCOPYRROLATE 1 MG TABLET GT SCH ×2 (09:26→21:06)
[2022-05-12] MEDS: GABAPENTIN 250 MG/5 ML ORAL SOLUTION, 470 ML BOTTLE GT SCH ×2 (09:30→21:52)
[2022-05-12] MEDS: ACETAMINOPHEN 650 MG/20.3 ML ORAL SOLUTION (CUPS) GT PRN ×2 (09:36→17:49)
[2022-05-12] MEDS: ONDANSETRON HCL 4 MG/5 ML BULK BOTTLE GT PRN (09:49)
[2022-05-12] MEDS ORDERED: IRON SUCROSE INJECTION 200 MG in SODIUM CHLORIDE 90 ML IVPB ONE (15:00)
[2022-05-12] MEDS: ONDANSETRON 4 MG/2 ML VIAL IVPUSH PRN (18:07)
[2022-05-12] MEDS: MELATONIN 5 MG TABLETS NR SCH (21:05)
[2022-05-12] MEDS: SENNOSIDES 8.8 MG/5 ML SYRUP GT SCH (21:06)
[2022-05-13] MEDS: LEVOTHYROXINE NA 50 MCG TABLET (FP) GT SCH (06:05)
[2022-05-13] MEDS: POTASSIUM CHLORIDE ORAL LIQUID 20 MEQ/15 ML PO SCH (10:47)
[2022-05-13] MEDS: POLYETHYLENE GLYCOL (HEALTHYLAX) 3350 17 GM PACKET GT SCH ×2 (10:49→21:10)
[2022-05-13] MEDS: AMINO ACIDS/PROTEIN HYDROLYS 30 ML LIQUID.PKT GT SCH ×2 (10:50→18:45)
[2022-05-13] MEDS: MINERAL OIL/PET HY-PHL TOPICAL OINTMENT 454 GM JAR TP SCH ×2 (10:53→21:09)
[2022-05-13] MEDS: CLOTRIMAZOLE 1% CREAM TP SCH ×2 (10:54→21:10)
[2022-05-13] MEDS: FUROSEMIDE 40 MG/5 ML UNIT-DOSE CUP GT SCH (10:54)
[2022-05-13] MEDS: ZINC SULFATE 220 MG CAPSULE (FP) GT SCH (10:55)
[2022-05-13] MEDS: FAMOTIDINE 40 MG/5 ML ORAL SUSPENSION GT SCH (10:55)
[2022-05-13] MEDS: CHOLECALCIFEROL (VIT D SOLUTION) 400 UNIT/1 ML DROPS GT SCH (10:56)
[2022-05-13] MEDS: GLYCOPYRROLATE 1 MG TABLET GT SCH ×2 (10:56→21:53)
[2022-05-13] MEDS: ASCORBIC ACID 500 MG/5 ML GT SCH ×2 (10:56→21:11)
[2022-05-13] MEDS: ALPRAZolam 1 MG TABLET NGT SCH ×2 (10:57→21:11)
[2022-05-13] MEDS: SERTRALINE HCL 50 MG TABLET (FP) GT SCH (10:57)
[2022-05-13] MEDS: GABAPENTIN 250 MG/5 ML ORAL SOLUTION, 470 ML BOTTLE GT SCH ×2 (18:44→21:10)
[2022-05-13] MEDS: ACETAMINOPHEN 650 MG/20.3 ML ORAL SOLUTION (CUPS) GT PRN (18:45)
[2022-05-13] MEDS: MELATONIN 5 MG TABLETS NR SCH (21:10)
[2022-05-13] MEDS: SENNOSIDES 8.8 MG/5 ML SYRUP GT SCH (21:11)
[2022-05-14] MEDS: ACETAMINOPHEN 650 MG/20.3 ML ORAL SOLUTION (CUPS) GT PRN ×2 (05:05→18:41)
[2022-05-14] MEDS: LEVOTHYROXINE NA 50 MCG TABLET (FP) GT SCH (06:32)
[2022-05-14] MEDS: AMINO ACIDS/PROTEIN HYDROLYS 30 ML LIQUID.PKT GT SCH ×2 (08:13→16:45)
[2022-05-14] MEDS: POLYETHYLENE GLYCOL (HEALTHYLAX) 3350 17 GM PACKET GT SCH ×2 (10:42→21:08)
[2022-05-14] MEDS: POTASSIUM CHLORIDE ORAL LIQUID 20 MEQ/15 ML PO SCH (10:42)
[2022-05-14] MEDS: CHOLECALCIFEROL (VIT D SOLUTION) 400 UNIT/1 ML DROPS GT SCH (10:43)
[2022-05-14] MEDS: ALPRAZolam 1 MG TABLET NGT SCH ×2 (10:43→21:06)
[2022-05-14] MEDS: ASCORBIC ACID 500 MG/5 ML GT SCH ×2 (10:43→21:07)
[2022-05-14] MEDS: ZINC SULFATE 220 MG CAPSULE (FP) GT SCH (10:43)
[2022-05-14] MEDS: SERTRALINE HCL 50 MG TABLET (FP) GT SCH (10:43)
[2022-05-14] MEDS: FAMOTIDINE 40 MG/5 ML ORAL SUSPENSION GT SCH (10:44)
[2022-05-14] MEDS: FUROSEMIDE 40 MG/5 ML UNIT-DOSE CUP GT SCH (10:44)
[2022-05-14] MEDS: GLYCOPYRROLATE 1 MG TABLET GT SCH ×2 (10:44→21:07)
[2022-05-14] MEDS: SCOPOLAMINE HYDROBROMIDE 1 PATCH PATCH.TD72 TD SCH (10:44)
[2022-05-14] MEDS: CLOTRIMAZOLE 1% CREAM TP SCH ×2 (10:46→21:09)
[2022-05-14] MEDS: MINERAL OIL/PET HY-PHL TOPICAL OINTMENT 454 GM JAR TP SCH ×2 (10:46→21:09)
[2022-05-14] MEDS: GABAPENTIN 250 MG/5 ML ORAL SOLUTION, 470 ML BOTTLE GT SCH ×2 (12:16→21:14)
[2022-05-14] MEDS: MELATONIN 5 MG TABLETS NR SCH (21:06)
[2022-05-14] MEDS: SENNOSIDES 8.8 MG/5 ML SYRUP GT SCH (21:08)
[2022-05-15] MEDS: LEVOTHYROXINE NA 50 MCG TABLET (FP) GT SCH (06:02)
[2022-05-15] MEDS: AMINO ACIDS/PROTEIN HYDROLYS 30 ML LIQUID.PKT GT SCH ×2 (09:01→18:37)
[2022-05-15] MEDS: ACETAMINOPHEN 650 MG/20.3 ML ORAL SOLUTION (CUPS) GT PRN ×2 (09:01→18:37)
[2022-05-15] MEDS: SERTRALINE HCL 50 MG TABLET (FP) GT SCH (11:00)
[2022-05-15] MEDS: ALPRAZolam 1 MG TABLET NGT SCH ×2 (11:00→22:19)
[2022-05-15] MEDS: ZINC SULFATE 220 MG CAPSULE (FP) GT SCH (11:00)
[2022-05-15] MEDS: POTASSIUM CHLORIDE ORAL LIQUID 20 MEQ/15 ML PO SCH (11:00)
[2022-05-15] MEDS: ASCORBIC ACID 500 MG/5 ML GT SCH (11:01)
[2022-05-15] MEDS: POLYETHYLENE GLYCOL (HEALTHYLAX) 3350 17 GM PACKET GT SCH ×3 (11:01→22:19)
[2022-05-15] MEDS: FAMOTIDINE 40 MG/5 ML ORAL SUSPENSION GT SCH (11:01)
[2022-05-15] MEDS: GLYCOPYRROLATE 1 MG TABLET GT SCH ×2 (11:01→22:19)
[2022-05-15] MEDS: FUROSEMIDE 40 MG/5 ML UNIT-DOSE CUP GT SCH (11:02)
[2022-05-15] MEDS: CLOTRIMAZOLE 1% CREAM TP SCH ×2 (11:02→22:19)
[2022-05-15] MEDS: CHOLECALCIFEROL (VIT D SOLUTION) 400 UNIT/1 ML DROPS GT SCH (11:02)
[2022-05-15] MEDS: MINERAL OIL/PET HY-PHL TOPICAL OINTMENT 454 GM JAR TP SCH ×2 (11:02→22:19)
[2022-05-15] MEDS: GABAPENTIN 250 MG/5 ML ORAL SOLUTION, 470 ML BOTTLE GT SCH ×2 (13:45→22:18)
[2022-05-15] MEDS: MELATONIN 5 MG TABLETS NR SCH (22:18)
[2022-05-15] MEDS: SENNOSIDES 8.8 MG/5 ML SYRUP GT SCH (22:19)
[2022-05-16] MEDS: ASCORBIC ACID 500 MG/5 ML GT SCH ×2 (02:01→10:37)
[2022-05-16] MEDS: LEVOTHYROXINE NA 50 MCG TABLET (FP) GT SCH (06:05)
[2022-05-16 08:59] VITALS: RESP 16
[2022-05-16] MEDS: ALPRAZolam 1 MG TABLET NGT SCH (10:34)
[2022-05-16] MEDS: POTASSIUM CHLORIDE ORAL LIQUID 20 MEQ/15 ML PO SCH (10:34)
[2022-05-16] MEDS: SERTRALINE HCL 50 MG TABLET (FP) GT SCH (10:35)
[2022-05-16] MEDS: GLYCOPYRROLATE 1 MG TABLET GT SCH (10:35)
[2022-05-16] MEDS: ZINC SULFATE 220 MG CAPSULE (FP) GT SCH (10:35)
[2022-05-16] MEDS: AMINO ACIDS/PROTEIN HYDROLYS 30 ML LIQUID.PKT GT SCH (10:36)
[2022-05-16] MEDS: CHOLECALCIFEROL (VIT D SOLUTION) 400 UNIT/1 ML DROPS GT SCH (10:37)
[2022-05-16] MEDS: FAMOTIDINE 40 MG/5 ML ORAL SUSPENSION GT SCH (10:38)
[2022-05-16] MEDS: FUROSEMIDE 40 MG/5 ML UNIT-DOSE CUP GT SCH (10:38)
[2022-05-16] MEDS: GABAPENTIN 250 MG/5 ML ORAL SOLUTION, 470 ML BOTTLE GT SCH (10:43)
[2022-05-16] MEDS: CLOTRIMAZOLE 1% CREAM TP SCH (12:30)
[2022-05-16] MEDS: MINERAL OIL/PET HY-PHL TOPICAL OINTMENT 454 GM JAR TP SCH (12:30)
[2022-05-16] MEDS: ACETAMINOPHEN 650 MG/20.3 ML ORAL SOLUTION (CUPS) GT PRN (12:55)
[2022-05-16 14:47] VITALS: PULSE 69
[2022-05-16] MEDS: POLYETHYLENE GLYCOL (HEALTHYLAX) 3350 17 GM PACKET GT SCH (14:51)
[2022-05-16 16:20] VITALS: BP 97/60; TEMP 98.7
== END 2022-05-16 15:42 | DRG 207 ==
LOC: JER 14:54 → JERBED 15:38 → JICU 17:45 → J5S 05-01 08:58
PROVIDERS: ADMIT Internal Medicine; ATTEND Family Medicine
PROC: 0B21XFZ Change Tracheostomy Device in Trachea, External Approach (ICD-10-PCS; principal; 2022-04-25)
PROC: 5A1955Z Respiratory Ventilation, Greater than 96 Consecutive Hours (ICD-10-PCS; 2022-04-25)
PROC: 0D20XUZ Change Feeding Device in Upper Intestinal Tract, External Approach (ICD-10-PCS; 2022-05-03)
DX: J95.09 Other tracheostomy complication (principal); G82.50 Quadriplegia, unspecified; J18.9 Pneumonia, unspecified organism; J96.22 Acute and chronic respiratory failure with hypercapnia; G12.21 Amyotrophic lateral sclerosis; E87.20 Acidosis, unspecified; K94.23 Gastrostomy malfunction; E03.9 Hypothyroidism, unspecified; R80.9 Proteinuria, unspecified; R00.0 Tachycardia, unspecified; N28.1 Cyst of kidney, acquired; D72.829 Elevated white blood cell count, unspecified; K59.00 Constipation, unspecified; R13.19 Other dysphagia; E87.6 Hypokalemia; L89.152 Pressure ulcer of sacral region, stage 2; Y83.8 Other surgical procedures as the cause of abnormal reaction of the patient, or of later complication, without mention of misadventure at the time of the procedure; Z86.73 Personal history of transient ischemic attack (TIA), and cerebral infarction without residual deficits
CPT/HCPCS: 0241U-QW; 36415; 36600; 49440; 70491-TC; 71045-TC-FY; 71260-TC; 74177-TC; 76775-TC; 80048; 80053; 81003; 82803; 82962; 83540; 83550; 83735; 84100; 84436; 84443; 84479; 85025; 85027; 85610; 85730; 86850; 86900; 86901; 87040; 87070; 87086; 87186; 87205; 93005; 93010; 94002; 99291; C9803-CS; J1100; J1756; Q9967; U0003; U0005